=== PATIENT | female | born 1940 ===

== ENCOUNTER 2017-08-12 16:54 | Inpatient (IN) | payer MEDICARE ==
[2017-08-12 17:24] LABS: Bilirubin Negative (Negative); Blood, Urine Negative (Negative); Glucose, Urine (Dipstick) Negative (Negative); Ketone, Urine Negative (Negative); Nitrite Negative (Negative); Protein, Urine (Dipstick) Negative (Neg-Trace); Urobilinogen 0.2 mg/dL (0.2-1.0)
[2017-08-12] MEDS ORDERED: ISOVUE-370 76%-LOCM 1 ML ONE (17:30)
--- NOTE | 2017-08-12 18:22 | RAD ---
RADIOGRAPH CHEST 2 VIEWS: 08/12/17 HISTORY: 76-year-old female with tachycardia and generalized weakness. FINDINGS: The thoracic aorta is tortuous and ectatic. There is no evidence of air space density, pneumothorax, or pulmonary edema. There is no cardiomegaly or pleural effusion. IMPRESSION: 1) No acute cardiopulmonary findings. 2) Ectasia of thoracic aorta. jono [] POS: [facility]
[2017-08-12] MEDS ORDERED: traMADol HCl 50 MG TAB ONE (18:42)
[2017-08-12] MEDS ORDERED: Ibuprofen 800 MG TAB ONE (18:43)
[2017-08-12] MEDS ORDERED: Aspirin 325 MG TAB ONE (18:43)
[2017-08-12 18:51] LABS: #Eosinphils 0.2 thou/uL (0.0-0.7); #Lymphocytes 2.4 thou/uL (1.20-3.40); #Monocytes 0.7 thou/uL (0.11-0.59); %Basophils 0.5 % (0.0-1.0); %Eosinophils 1.7 % (0.0-10.0); %Lymphocytes 23.3 % (21.0-51.0); %Monocytes 6.5 % (0.0-10.0); Hematocrit 43.5 % (36.0-47.0); Mean Platelet Volume 6.6 fL (7.4-10.4); Red Blood Cell (RBC) Count 4.62 mill/uL (4.20-5.40); White Blood Cell (WBC) Count 10.3 thou/uL (4.8-10.8)
[2017-08-12 19:17] LABS: ALT (SGPT) 26 U/L (8-55); AST (SGOT) 26 U/L (5-34); Alkaline Phosphatase 64 U/L (40-150); Anion Gap 12 mmol/L (10-20); BUN (Urea Nitrogen) 12 mg/dL (9.8-20.1); Bilirubin, Total 0.3 mg/dL (0.2-1.2); CK (CPK) 212 U/L (29-168); Calc. Creatinine Clearance 0 mL/min (70-130); Calcium 9.6 mg/dL (7.8-10.44); Carbon Dioxide 27 mmol/L (23-31); Chloride 100 mmol/L (98-107); Estimated GFR-MDRD 79; Globulin 3.5 g/dL (2.4-3.5); Protein, Total 7.7 g/dL (6.0-8.3)
[2017-08-12] MEDS ORDERED: Metoprolol Tartrate 5 MG/5 ML VIAL ONE (19:32)
[2017-08-12] MEDS ORDERED: Nitroglycerin 0.4 MG TAB (25 Tab Bottle) ONE (19:32)
[2017-08-12] MEDS ORDERED: Nitroglycerin 2% Ointment 1 INCH/1 GM Packet ONE (19:32)
[2017-08-12] MEDS ORDERED: Adenosine 6 MG/2 ML VIAL ONE (19:47)
[2017-08-12] MEDS ORDERED: Diltiazem 125 MG/25 ML ONE (19:53)
[2017-08-12] MEDS ORDERED: Diltiazem HCl 125 MG, Admixture Fee 1 EACH in Sodium Chloride 0.9% 100 ML IVPB SCH (20:15)
--- NOTE | 2017-08-12 22:13 | CT ---
CTA THORAX WITH CONTRAST CTA ABDOMEN WITH CONTRAST: 08/12/17 (Computed Tomographic Angiography, chest(noncoronary) with contrast material, and image postprocessin g) (Computed Tomographic Angiography, abdomen with contrast material, and image postprocessing) HISTORY: 76-year-old female with upper back pain, hypertension, and tortuous thoracic aorta. Rule out aortic d issection. TECHNIQUE: IV injection of iodinated contrast: Arterial phase bolus chasing technique. Scan acquisition from top of top of aortic arch to iliac crests. 3D MIP reconstructions. FINDINGS: There is no acute aortic dissection and no aortic rupture. There is diffuse ectasia of the entire tho racic aorta. Calibers: Ascending aorta: 4.5 cm. Aortic arch: 3.2 cm. Descending thoracic aorta: 3.3 cm. Both calcified and noncalcified atherosclerotic plaque become moderate throughout the abdominal aorta and common iliac arteries. There is a short segment of what appears to be chronic dissection in the proximal aspect of the left common iliac artery. Extensive irregularity of the abdominal aorta. Proximal abdominal aorta: 3.4 x 3.1 cm. Mid abdominal aorta: 2.5 cm. Distal abdominal aorta: 2.2 cm. Large number of diverticula throughout the ascending, transverse, and descending colon. Diffusely low hepatic attenuation consistent with fatty liver. No signs of acute cholecystitis. No major pathology of bilateral kidneys, pancreas, or spleen. No cardiomegaly, pleural effusion, or pneumothorax. No pu lmonary edema or consolidation. No compression fracture of thoracic spine. L1-2, moderate degenerativ e disc disease. L3-4 and L4-5, moderate to severe degenerative disc disease. There is a large number of mildly enlarged mesenteric lymph nodes throughout the abdominal cavity. There is no evidence of p ulmonary thromboembolism. IMPRESSION: 1. No aortic dissection or rupture. 2. Diffuse ectasia and atherosclerotic disease of the aorta. 3. Degenerative disc disease in the lumbar spine. 4. Extensive colonic diverticulosis. 5. Nonspecific mesenteric lymphadenitis. 6. Hepatic steatosis. jn[] POS: [facility]
[2017-08-12 23:39] LABS: Troponin I 0.029 ng/mL (< 0.028)
[2017-08-13 00:19] VITALS: BMI 29.8
[2017-08-13] MEDS ORDERED: Acetaminophen 325 MG TAB PO PRN (01:15)
[2017-08-13] MEDS ORDERED: Ondansetron HCl/PF 4 MG/2 ML Vial IVP PRN (01:15)
--- NOTE | 2017-08-13 01:23 | PDOC.EVN ---
Event Note - Event Note Event Note: [id number] H&P Dictated 1/ SVT 2. H/O COPD 3. HTN PLAN: SEE ORDERS
[2017-08-13] MEDS: HYDROcodone/Acetaminophen 5/325 mg Tablet PO PRN ×5 (01:34→19:14)
[2017-08-13 02:43] LABS: #Basophils 0.1 thou/uL (0.0-0.2); #Eosinphils 0.3 thou/uL (0.0-0.7); #Lymphocytes 3.1 thou/uL (1.20-3.40); #Monocytes 0.8 thou/uL (0.11-0.59); #Neutrophils 4.9 thou/uL (1.40-6.50); %Eosinophils 2.8 % (0.0-10.0); %Lymphocytes 33.7 % (21.0-51.0); %Monocytes 8.6 % (0.0-10.0); Hematocrit 39.6 % (36.0-47.0); Mean Platelet Volume 6.7 fL (7.4-10.4); Red Blood Cell (RBC) Count 4.24 mill/uL (4.20-5.40); White Blood Cell (WBC) Count 9.1 thou/uL (4.8-10.8)
[2017-08-13 02:56] LABS: Troponin I 0.029 ng/mL (< 0.028)
[2017-08-13 02:59] LABS: Anion Gap 10 mmol/L (10-20); BUN (Urea Nitrogen) 12 mg/dL (9.8-20.1); Calc. Creatinine Clearance 83 mL/min (70-130); Calcium 9.6 mg/dL (7.8-10.44); Carbon Dioxide 30 mmol/L (23-31); Chloride 103 mmol/L (98-107); Estimated GFR-MDRD 78; Magnesium 2.1 mg/dL (1.6-2.6)
[2017-08-13] MEDS: Sodium Chloride 0.9% 1,000 ML IV SCH ×2 (03:59→17:57)
[2017-08-13 06:13] LABS: Troponin I 0.022 ng/mL (< 0.028)
--- NOTE | 2017-08-13 08:15 | HP ---
DATE OF ADMISSION: 08/12/2017 CHIEF COMPLAINT: Weakness, back pain, shoulder pain. HISTORY OF PRESENT ILLNESS: The patient is 76 years old female with past medical history of COPD, ca me to the ER complaining of upper back pain radiating towards the left shoulder and left side of the neck also. Symptoms started approximately a few days back, had similar episodes of symptoms in the p ast, but current symptoms started 3 days back. Symptoms persisted, the patient started having some a nxiety and palpitations also, so patient went to the PCP today. In the PCP office, patient was found to have abnormal EKG, so patient was referred to the ER. Patient denies any chest pain, denies any chest tightness, denies any dizziness, denies any lightheadedness, denies any nausea, denies any vomi ting, but complains of generalized body aches, she then complains of fatigue, complains of left shoul lavelle pain and neck pain and upper back pain. Pain is milder in intensity, no aggravating or relieving factors. Denies any dizziness. PAST MEDICAL HISTORY: COPD. PAST SURGICAL HISTORY: Knee replacement, salpingectomy. SOCIAL HISTORY: Denies smoking. Positive for alcohol. Denies any drugs. FAMILY HISTORY: Positive for a brother having heart problems. REVIEW OF SYSTEMS: Constitutional: Denies any fever, denies any chills. Eyes: Denies any vision p roblems. Neck: Positive for neck pain. Cardiovascular: Denies any chest pain. Denies any palpita tions. Respiratory: Positive for dyspnea. Gastrointestinal: Denies nausea, vomiting. Musculoskel etal: Positive for left shoulder pain. Genitourinary: Denies dysuria. Cranial Nerve System: Denies syncope. All other review of systems are reviewed and are negative. PHYSICAL EXAMINATION: CONSTITUTIONAL/VITAL SIGNS: At the time of H and P performed, blood pressure was 184/91, heart rate 96. GENERAL: The patient appears comfortable. HEENT: Pupils equal, round, and reactive to light. Anterior nares patent. Nose normal. Hearing no rmal. Teeth intact. Tongue is moist. NECK: Supple. No JVD. CARDIOVASCULAR SYSTEM: S1, S2 present. Regular rate and rhythm. No murmurs, no rubs, no gallops. RESPIRATORY SYSTEM: No wheezing, no rhonchi. Breath sounds present bilaterally. GASTROINTESTINAL: Abdomen is soft, nontender. No guarding, no organomegaly, no masses felt. MUSCULOSKELETAL: No edema. INTEGUMENTARY: No obvious rashes seen. Cranial Nerves System: Cranial nerves intact. Follows commands. Strength intact. Sensory intact. PSYCHIATRIC: Mood is appropriate at this time. LABORATORY DATA: At the time of H and performed, white count 10.3, hemoglobin 13.9, platelet count i s 366. BMP shows sodium 135, potassium 4.1, chloride 100, CO2 of 27, BUN of 12, creatinine 0.72, glu cose 86, calcium 9.6, AST 26, ALT 26, troponin 0.029. Serum total protein 7.7. UA specific gravity 1.006, urine pH 7.5. ASSESSMENT AND PLAN: The patient is 76 years old female. 1. Supraventricular tachycardia, the patient had an episode of supraventricular tachycardia in the E R. Continue Cardizem drip. We will go ahead and consult for cardioversion. We will check a TSH and magnesium level. We will check 2D echo also and we will follow the patient. 2. Elevated blood pressure, appears as hypertension. We will monitor blood pressure closely. We wi ll start the patient on Norvasc 5 mg p.o. daily. We will monitor blood pressure. 3. History of chronic obstructive pulmonary disease. Continue breathing treatments. Monitor respir atory status closely. 4. Neck pain and left shoulder pain, rule out atypical chest pain. We will check serial cardiac enz ymes. We will wait for Cardiology input. The case was discussed in detail with the patient and patient's family members also.
[2017-08-13] MEDS: Heparin 5,000 UNITS/ML VIAL SC SCH ×3 (09:20→20:44)
--- NOTE | 2017-08-13 10:54 | PDOC.PN ---
- Subjective Encounter Start Date: 08/13/17 Encounter Start Time: 10:52 Ms. Heard was seen today in follow-up of SVT. She says she feels fine. She denies feeling dizzy or lightheaded, as she had when she was first admitted. - Objective MAR Reviewed: Yes Vital Signs & Weight: Vital Signs (12 hours) Temp Pulse Resp BP Pulse Ox 08/13/17 10:27 70 14 08/13/17 09:28 97.9 F 74 18 93 L 08/13/17 07:12 97.9 F 74 18 120/60 93 L 08/13/17 04:00 98 F 80 20 138/69 91 L 08/13/17 02:44 77 16 98 08/12/17 23:43 97.7 F 77 16 184/91 H 93 L Weight Weight 174 lb I&O: 08/12/17 08/13/17 08/14/17 06:59 06:59 06:59 Intake Total 308 Balance 308 Result Diagrams: 08/13/17 02:24 08/13/17 02:24 Phys Exam - Physical Examination HEENT: PERRLA Respiratory: wheezing present + faint wheeze Cardiovascular: RRR, no rub 2/6 systolic murmur Gastrointestinal: soft, non-tender, positive bowel sounds Musculoskeletal: no edema Dx/Plan (1) SVT (supraventricular tachycardia) Code(s): I47.1 - SUPRAVENTRICULAR TACHYCARDIA Status: Acute (2) Chronic respiratory failure Code(s): J96.10 - CHRONIC RESPIRATORY FAILURE, UNSP W HYPOXIA OR HYPERCAPNIA Status: Chronic (3) COPD (chronic obstructive pulmonary disease) Status: Chronic - Plan * SVT- continue Cardizem drip, and await Cardiology evaluation * Echo- pending * COPD- stable, no evidence of acute exacerbation .
[2017-08-13] MEDS: Famotidine 20 MG TAB PO SCH (20:43)
[2017-08-14] MEDS: HYDROcodone/Acetaminophen 5/325 mg Tablet PO PRN ×6 (00:44→21:41)
[2017-08-14] MEDS: Sodium Chloride 0.9% 1,000 ML IV SCH (04:42)
[2017-08-14] MEDS: Famotidine 20 MG TAB PO SCH ×2 (08:52→21:41)
[2017-08-14] MEDS: Heparin 5,000 UNITS/ML VIAL SC SCH ×2 (08:52→15:25)
--- NOTE | 2017-08-14 11:54 | PDOC.PN ---
- Subjective Encounter Start Date: 08/14/17 Encounter Start Time: 11:52 Ms. Heard was seen today in follow-up of SVT. She complains of some pain in her neck and upper shoulder, which radiates down into her upper chest. She is a bit elusive as to when this began, but after some questioning, it appears this has been a problem for years. She want to know why she was prescribed Hydrocodone for it in the past. - Objective MAR Reviewed: Yes Vital Signs & Weight: Vital Signs (12 hours) Temp Pulse Resp BP Pulse Ox 08/14/17 10:00 98.3 F 89 16 08/14/17 07:47 98.3 F 89 16 151/74 H 94 L 08/14/17 07:02 70 14 08/14/17 03:56 98.8 F 92 20 142/78 H 98 08/14/17 01:05 98.3 F 87 16 166/79 H 90 L Weight Weight 207 lb 3.2 oz I&O: 08/13/17 08/14/17 08/15/17 06:59 06:59 06:59 Intake Total 308 2413 Balance 308 2413 Result Diagrams: 08/13/17 02:24 08/13/17 02:24 Phys Exam - Physical Examination HEENT: PERRLA Respiratory: no wheezing, no rales, no rhonchi, clear to auscultation bilateral Cardiovascular: RRR, no significant murmur Gastrointestinal: soft, non-tender, positive bowel sounds Musculoskeletal: no edema Neurological: non-focal Dx/Plan (1) SVT (supraventricular tachycardia) Code(s): I47.1 - SUPRAVENTRICULAR TACHYCARDIA Status: Acute (2) Chronic respiratory failure Code(s): J96.10 - CHRONIC RESPIRATORY FAILURE, UNSP W HYPOXIA OR HYPERCAPNIA Status: Chronic (3) COPD (chronic obstructive pulmonary disease) Status: Chronic - Plan * SVT- patient has been transitioned to oral Cardizem * Plan is for EP evaluation * Neck and shoulder pain- from her description it is consistent with a Cervical Spine strain or radiculopathy- this is chronic and can be addressed as an outpatient * COPD- stable.
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
[2017-08-15] MEDS: HYDROcodone/Acetaminophen 5/325 mg Tablet PO PRN ×3 (03:27→15:29)
[2017-08-15] MEDS: Famotidine 20 MG TAB PO SCH (08:58)
--- NOTE | 2017-08-15 09:25 | PDOC.PN ---
- Subjective Encounter Start Date: 08/15/17 Encounter Start Time: 09:23 Ms. Heard was seen today in follow-up. She says she feels fine. She denies any chest pain or difficulty breathing. - Objective MAR Reviewed: Yes Vital Signs & Weight: Vital Signs (12 hours) Temp Pulse Resp BP Pulse Ox 08/15/17 08:29 65 16 92 L 08/15/17 07:12 97.8 F 73 16 120/70 93 L 08/15/17 03:44 98.3 F 71 16 137/59 L 93 L 08/14/17 23:22 98.3 F 77 18 139/77 93 L 08/14/17 21:39 98.7 F 83 16 93 L Weight Weight 175 lb 14.4 oz I&O: 08/14/17 08/15/17 08/16/17 06:59 06:59 06:59 Intake Total 2413 2460 Balance 2413 2460 Result Diagrams: 08/13/17 02:24 08/13/17 02:24 Phys Exam - Physical Examination HEENT: PERRLA Respiratory: no wheezing, no rales, no rhonchi, clear to auscultation bilateral Cardiovascular: RRR, no significant murmur Gastrointestinal: soft, non-tender, positive bowel sounds Musculoskeletal: no edema Dx/Plan (1) SVT (supraventricular tachycardia) Code(s): I47.1 - SUPRAVENTRICULAR TACHYCARDIA Status: Acute (2) Chronic respiratory failure Code(s): J96.10 - CHRONIC RESPIRATORY FAILURE, UNSP W HYPOXIA OR HYPERCAPNIA Status: Chronic (3) COPD (chronic obstructive pulmonary disease) Status: Chronic - Plan * SVT- her has remained in sinus rhythm so far on oral Cardizem * Awaiting the EP evaluation * Suspected Cervical strain/radiculopathy- stable * COPD- with chronc respiratory failure- stable.
--- NOTE | 2017-08-15 13:53 | CON ---
DICTATED BY: Jeri Escobedo NP DATE OF CONSULTATION: 08/15/2017 CONSULTING PHYSICIAN: Dr. Ney Alvarez HISTORY OF PRESENT ILLNESS: Ms. Heard is a 76-year-old female who is undergoing initial workup for recent heart racing episode which happened in the emergency room. She had initially presented to [facility] primary care doctor for complaints of muscle spasms of her upper back and neck who redirected her t o the emergency room. While in the emergency room, she received oral tramadol, Motrin and aspirin an d developed heart racing, SVT, at which point she received 12 mg of IV adenosine. The adenosine seem s to have cardioverted her, but she did, after reviewing the strips in the chart, return to her SVT a rrhythmia. Following the adenosine, she was given 20 mg of diltiazem IV then placed on a drip at 5 m g an hour. During her episode with the heart racing she denies any chest pain or pressure, syncope o r near syncope. She does report that she was very aware of her heart racing and denies that she has ever had this in the past. Other than her muscle spasms and neck and back problems she denies that s he has had any issues of late and is in generally good health. PAST MEDICAL HISTORY: 1. COPD, stable without exacerbation. 2. Long-term history of tobacco use, quit 6 years ago. 3. Risk factors for coronary artery disease, negative for hypercholesterolemia, diabetes, possible h ypertension diagnosed given ER presentation. SOCIAL HISTORY: The patient quit smoking 6 years ago, but has had a long history of tobacco use prio r to that. She reports occasional alcohol consumption and denies any illicit drug use. FAMILY HISTORY: Negative for stroke, negative for sudden cardiac . Positive reports; brother h as heart disease of some sort. REVIEW OF SYSTEMS: NEUROLOGIC: The patient denies any lightheadedness, passing out, stroke or stroke-like symptoms incl uding one-sided weakness, vision changes, speech changes or numbness. CARDIOVASCULAR: The patient d enies any chest pain, pressure, swelling of the extremities. Positive for palpitations and heart rac ing sensation just while in the emergency room with that one episode. PULMONARY: The patient denies any shortness of breath that is progressive, persistent cough, recent respiratory illness. GI: The patient denies nausea, vomiting, diarrhea or blood in her stool. : The patient denies any frequency, hesitancy, difficulty urinating or blood in her urine. PHYSICAL EXAMINATION: VITAL SIGNS: Include temperature 97.8 degrees Fahrenheit, pulse 65, respirations 16, oxygen saturati on is 92% and blood pressure 120/70. NEUROLOGIC: Exam is grossly intact. The patient is nonfocal and without deficit. HEENT: Pupils are equal and reactive to light. Trachea is midline. Neck is supple. There is no ju gular venous distention. Mucous membranes are moist and the patient has adequate dentition. PULMONARY: Lungs are clear to auscultation bilaterally, there are no wheezes, rhonchi or crackles pr esent. There is good bilateral excursion and respirations are even and unlabored. CARDIAC: Rhythm is regular irregular, without murmurs, rubs or gallops. EXTREMITIES: Warm and dry to touch without evidence of cyanosis, clubbing or edema. ABDOMEN: Benign exam without tenderness, masses or organ enlargement. Hepatojugular reflex is negat carleen. LABORATORY DATA: EKG on presentation to the emergency room initially was a sinus tachycardia, but di d develop into what appears to be a possible PAT versus an atypical AVRT or AVNRT (which is less like ly). Lab results from 08/13/2017; WBC 9.1, hemoglobin 13.0, hematocrit 39.6, platelet count is 334. Chemi stry panel from 08/13/2017; sodium 139, potassium 4.3, BUN 12, creatinine 0.73, magnesium 2.1, calciu m 9.6. Serial troponins revealed mild elevation that was indeterminate, peaking at 0.029 and have since tren ded down. Urinalysis was clear. A 2D echocardiogram revealed an LVEF 45-50% with evidence of diastolic dysfunction, mild left atrial enlargement, mild MR, mild TR. CT of the chest had no acute findings and did not suggest any aortic dissection, but did have some suggested atherosclerotic disease of the aorta. IMPRESSION: 1. Paroxysmal palpitations/supraventricular tachycardia with adenosine termination. This likely rep resents paroxysmal atrial tachycardia based on review of the EKGs and rhythm strips available. A les s likely option would be an atypical AVNRT or AVRT, but without further invasive study (EP study) it is difficult to determine the origin of the arrhythmia. 2. Mildly decreased left ventricular ejection fraction. 3. Pulmonary disease, chronic obstructive pulmonary disease is currently stable. 4. Hypertension, currently well controlled. PLAN: The supraventricular tachycardia was discussed with the patient at length. We reviewed the po ssible origins of the arrhythmias and the various possible arrhythmias that she could be experiencing . The patient was offered an EP study for more thorough workup which at this point she does not wish to pursue. Instead, she will opt for medical management and rate control. Should her arrhythmias r eturn in the future or not be well controlled by medication alone, we will revisit the option of EP s tudy and possible ablation depending on the results. Our suggestion is for the patient to continue w ith p.o. diltiazem and we will follow up with her in clinic. We feel this is reasonable, given this is the first occurrence of this arrhythmia and the patient does not have a history of syncope or recu rrent palpitations. This could be a solitary event. We will see the patient outpatient. Thank you very much for allowing us to participate in the patient's care.
[2017-08-15 15:49] VITALS: BP 169/54; TEMP 98.3
--- NOTE | 2017-08-16 07:50 | DIS ---
DATE OF ADMISSION: 08/12/2017 DATE OF DISCHARGE: 08/15/2017 PRIMARY CARE PHYSICIAN: Al Owusu D.O. DISCHARGE DISPOSITION: Home. PRIMARY DISCHARGE DIAGNOSES: 1. Supraventricular tachycardia. 2. Chronic respiratory failure secondary to chronic obstructive pulmonary disease. 3. Chronic obstructive pulmonary disease exacerbation. 4. Probable cervical radiculopathy. DISCHARGE MEDICATIONS: Include Cardizem CD 180 mg 1 p.o. daily, budesonide 1 ampule twice daily, and montelukast 10 mg daily. PROCEDURES DONE DURING ADMISSION: The patient had an echocardiogram in which there was some E to A f low reversal suggestive of diastolic dysfunction, the overall left ventricular function was mildly de pressed. Patient also had a CT dissection protocol in which there was no aortic dissection or ruptur e. There was some diffuse ectasia and some degenerative joint disease in the lumbar spine, extensive colonic diverticulosis. CODE STATUS: FULL CODE. ALLERGIES: No known drug allergies. HOSPITAL COURSE: Ms. Heard is a pleasant 76-year-old female that presented to the emergency room w ith complaints of pain in her neck, upper arm, and shoulder. She was evaluated in the ER and there w as concern for possible dissection. CT angiogram was done, which was negative for dissection; maury r, it was also noted that she had a fairly long episode of supraventricular tachycardia. She was adm itted and started on a Cardizem drip and Cardiology was consulted. The patient had an echocardiogram and demonstrated mildly depressed ejection fraction. The EF was not calculated with some mild E to A reversal. She was eventually transitioned to oral Cardizem and the print room worker was consult ed. The patient opted to forego an EP study at this time and was discharged on oral Cardizem. It is felt that this may also be an isolated event and she was subsequently discharged home and to have a close outpatient followup with her primary care physician and also with cardiology as instructed. I also explained to the patient to discuss her symptoms of neck, shoulder, and upper chest pain with john r primary care physician. This is a chronic issue that has been going on for years. She admits to juan pablo chamberlain to see chiropractors for the same problem in the past and this can be directed with her primary care physician in the outpatient setting.
--- NOTE | 2017-08-27 15:25 | EKG ---
Test Reason : Blood Pressure : / mmHG Vent. Rate : 102 BPM Atrial Rate : 102 BPM P-R Int : 164 ms QRS Dur : 090 ms QT Int : 326 ms P-R-T Axes : 078 065 070 degrees QTc Int : 424 ms Sinus tachycardia Otherwise normal ECG Confirmed by LANNY GREENBERG, JERRELL Lambert ([id number]), newspaper managing editor WINSOME JOSE ([id number]) on 08/27/2017 3:25:42 PM Referred By: Confirmed By:JERRELL CA MD
--- NOTE | 2017-08-27 15:55 | EKG ---
Test Reason : Blood Pressure : / mmHG Vent. Rate : 103 BPM Atrial Rate : 103 BPM P-R Int : 172 ms QRS Dur : 094 ms QT Int : 320 ms P-R-T Axes : 077 076 072 degrees QTc Int : 419 ms Sinus tachycardia Nonspecific ST abnormality Lateral ischemia Abnormal ECG Confirmed by LANNY GREENBERG, JERRELL Lambert ([id number]), editor greeting card WINSOME JOSE ([id number]) on 08/27/2017 3:55:23 PM Referred By: Confirmed By:JERRELL CA MD
--- NOTE | 2017-08-27 15:57 | EKG ---
Test Reason : Blood Pressure : / mmHG Vent. Rate : 174 BPM Atrial Rate : 174 BPM P-R Int : 000 ms QRS Dur : 088 ms QT Int : 278 ms P-R-T Axes : 000 077 086 degrees QTc Int : 473 ms Supraventricular tachycardia Abnormal ECG Confirmed by LANNY GREENBERG, JERRELL Lambert (9), editorial specialist WINSOME JOSE ([id number]) on 08/27/2017 3:56:26 PM Referred By: Confirmed By:JERRELL CA MD
== END 2017-08-15 18:33 | disposition home or self-care (01) | DRG 309 ==
LOC: ERS 16:54 → 2SE 21:15
PROVIDERS: ADMIT Internal Medicine; ATTEND Internal Medicine
DX: I47.1 Supraventricular tachycardia (principal); J44.1 Chronic obstructive pulmonary disease with (acute) exacerbation; J96.10 Chronic respiratory failure, unspecified whether with hypoxia or hypercapnia; I10 Essential (primary) hypertension; F41.9 Anxiety disorder, unspecified; M54.12 Radiculopathy, cervical region; M51.36 Other intervertebral disc degeneration, lumbar region; K57.30 Diverticulosis of large intestine without perforation or abscess without bleeding; M62.830 Muscle spasm of back; Z82.49 Family history of ischemic heart disease and other diseases of the circulatory system
CPT/HCPCS: 36415; 71020; 71275; 80048; 80053; 81003; 82553; 83735; 84443; 84484; 85025; 93005; 93306; 94640; 94760; 96361; 96365; 96366; 96375; 96376; 99213; A4216; G0463; J0153; J1644; J7050; J7620